=== PATIENT | male | born 1965 | race Caucasian/White ===

== ENCOUNTER 2021-03-08 10:43 | Observation (INO) | payer BC, SELFPAY ==
[2021-03-08 11:02] VITALS: BP 185/139; PULSE 93; RESP 18; TEMP 36.7; O2SAT 100; BMI 24.3
--- NOTE | 2021-03-08 11:14 | ED_ITS ---
HPI - Neuro Symptoms/Deficit General: Chief Complaint: Neuro Symptoms/Deficit Stated Complaint: NEURO SX: SENT BY DR JARVIS Time Seen by Provider: 03/08/21 11:14 History of Present Illness: HPI Narrative: Mr. Gandhi is a 55-year-old gentleman with significant past medical history of hypertension who presents emergency department for sensory changes. Symptom onset was subacute approximately 1 week ago without specific inciting factors that the patient identifies. He initially noticed a weird sensation in his right foot however this subsequently rapidly progressed to being the entire right side of his body including torso and face. He describes it as varying slightly however currently compared to contralateral side approximately 15% sensation. He feels unsteady in his gait without looking at what his feet are doing. He does have mild right-sided headache which is sharp in nature. No other specific changes in health, exacerbating factors, provoking, alleviating factors, or similar episodes in the past. Review of Systems General: Reports: 10 or more systems reviewed and unremarkable except in HPI and below PFSH ED PFSH: Medical History (Updated 03/10/21 @ 00:01 by ) Cerebrovascular accident Hypertension Physical Exam Narrative: EXAM NARRATIVE: GENERAL/CONSTITUTIONAL - well-appearing. No acute distress. Eyes - PERRL, no conjunctival injection ENMT - Atraumatic external nose and ears. Moist mucous membranes NECK - supple. trachea midline CARDIOVASCULAR - regular rate and rhythm. Peripheral pulses 2+ and equal RESPIRATORY -clear to auscultation bilaterally. No retractions or accessory muscle use. ABDOMEN/GI - Nontender/Nondistended. No tenderness to percussion or evidence of peritonitis MSK - Extremities without obvious deformity or tenderness to palpation SKIN - Warm, Dry NEURO - alert and oriented x3. Right-sided sensory deficits to sharp and light touch noted on right upper and lower extremity as well as torso and less of the face. No strength deficits, coordination is intact, positive Romberg. Course ED course: - Patient was seen and evaluated by me at bedside - Patient placed on cardiac monitors, IV access obtained - Initial evaluation notable for neuro exam as noted above, patient outside TPA window. - Labs notable for no acute abnormality to explain patient's symptoms. - Imaging notable for no significant abnormality noted on head CT or CTA. - Recommend admission however the patient was hesitant at which point MRI was noted. MRA notable for stroke. - Upon serial reexamination after treatment the patient was similar - Based on patient history, evaluation, labs, and imaging as interpreted the most likely cause of the patient's condition is stroke - The results of ED evaluation were discussed with the patient including plan for admission due to requirement for level of care not available if discharged to prevent significant worsening/deterioration. - Hospitalist service contacted and agreed admit the patient for further evaluation and risk factor modification. - Patient was admitted without further deterioration or significant events. Vital Signs: Vital signs: Vital Signs Temperature 97.9 F 03/09/21 15:53 Pulse Rate 91 03/09/21 15:53 Respiratory Rate 16 03/09/21 15:53 Blood Pressure 167/106 03/09/21 15:53 Pulse Oximetry 96 03/09/21 15:53 MDM - Neuro Symptoms/Deficit Medical Records: Attestation: I reviewed the patient's medical records. Lab Data: Attestation: I reviewed the patient's lab results. Labs: Lab Results 03/08/21 03/08/21 11:30 11:30 WBC 8.9 10^3/uL 10^3/ uL (4.0-10.0) RBC 5.18 10^6/uL 10^6 /uL (4.1-5.3) Hgb 16.0 g/dL g/dL (11.7-16.6) Hct 48.1 % % (42.0-52.0) MCV 92.9 fl fl (80-94) MCH 30.9 pg pg (28.0-34.0) MCHC 33.3 g/dL g/dL (30.0-36.0) RDW 13.7 % % (12.1-15.1) Plt Count 246 10^3/cmm 10^3 /cmm (130-400) MPV 12.3 fL H fL (7.4-10.4) Neut % (Auto) 62.9 % % Lymph % (Auto) 26.2 % % [place] % (Auto) 5.7 % % Eos % (Auto) 3.4 % % Baso % (Auto) 1.5 % % Neut # (Auto) 5.61 10^3/uL 10^3 /uL (1.8-7.7) Lymph # (Auto) 2.3 10^3/uL 10^3/ uL (0.8-4.8) [place] # (Auto) 0.5 10^3/uL 10^3/ uL (0.2-0.9) Eos # (Auto) 0.3 10^3/uL 10^3/ uL (0.0-0.8) Baso # (Auto) 0.1 10^3/uL 10^3/ uL (0.0-0.1) Nucleated RBC % (a uto) 0 % % Nucleated RBCs # 0.0 /100WBC /100W BC Sodium 141 mmol/L mmol/L (136-145) Potassium 3.9 mmol/L mmol/L (3.5-5.1) Chloride 105 mmol/L mmol/L (98-107) Carbon Dioxide 26 mmol/L mmol/L (22-29) Anion Gap 13.9 (5-19) BUN 8 mg/dL mg/dL (6-20) Creatinine 0.7 mg/dL mg/dL (0.7-1.2) GFR Calculation 118.0 mL/min mL/m in (90-130) Glucose 88 mg/dL mg/dL (65-115) Calculated Osmolal ity 290 mOsm/kg mOsm/ kg (285-295) Calcium 9.2 mg/dL mg/dL (8.5-10.5) Total Bilirubin 0.2 mg/dL mg/dL (0.15-1.2) AST 19 U/L U/L (0-40) ALT 21 U/L U/L (0-41) Alkaline Phosphata se 89 IU/L IU/L (40-130) Total Protein 6.9 g/dL g/dL (6.6-8.7) Albumin 4.2 g/dL g/dL (3.5-5.2) Globulin 2.7 g/dL g/dL (1.3-4.6) Discharge Plan Discharge Patient Disposition: Placed in Observation Admit Provider: Alex Garcia Clinical Impression: Cerebrovascular accident Discharge Diet: Low Salt Discharge Activity: Resume usual activity Coding Level of Care Code ED Quality Systems Technician for Aaron Cota
[2021-03-08 11:15] VITALS: BP 185/109; PULSE 74; RESP 16; TEMP 36.8; O2SAT 98
--- NOTE | 2021-03-08 11:15 | CT_ITS ---
WS: [id number] CT HEAD NONCONTRAST HISTORY: stroke like symptoms TECHNIQUE: Contiguous axial imaging performed through the brain in 2.5 mm imaging. Bone and soft tiss ue windows. Sagittal and coronal reformats reviewed. All CT scans at [facility] use at least one of these dose optimization techniques: automated exposure control; mA and/or kV adjustment per pa tient size (includes targeted exams where dose is matched to clinical indication); or iterative recon struction. DLP: 976.42 mGy.cm COMPARISON: None available. No acute intracranial hemorrhage, midline shift or mass effect. Prominent perivascular space along th e RIGHT inferior basal ganglia. No atrophy or prior infarcts or herniation. Ventricles: Normal size with no hydrocephalus. Paranasal sinuses: As visualized are clear. Mastoid air cells: Well pneumatized. Calvarium and scalp: Skull is intact with no soft tissue edema or swelling. CT/CT head wo con* [id number] IMPRESSION: 1. No acute intracranial hemorrhage or edema. 2. No acute infarct or sulcal effacement.
--- NOTE | 2021-03-08 11:44 | CT_ITS ---
WS: [id number] CT ANGIOGRAM CEREBRAL AND CAROTID ARTERIES HISTORY: stroke like symptoms, R side sensory changes TECHNIQUE: CT angiogram is performed of the carotid and cerebral arteries. During arterial injection imaging is obtained from the skull vertex to the aortic arch in 1.25 mm imaging. Coronal and sagittal reformats are submitted. Additional multi planar reformats of the carotid and cerebral arteries are submitted, MIP imaging also reviewed. NASCET criteria utilized. [facility] CT [facility] at least one of these dose optimization techniques: automated exposure control; mA and/or kV adjust ment per patient size (includes targeted exams where dose is matched to clinical indication); or iter ative reconstruction. CONTRAST: Omnipaque 350; 95 mL IV. DLP: 2501.85 mGy.cm COMPARISON: None available. Carotid Angiogram: Right carotid: Common carotid artery: Arises normally from the innominate artery. No significant plaque or stenosis. Internal carotid artery: Small amount of intimal thickening and plaque at the proximal ICA. No stenos is. External carotid artery: Patent. Left carotid: Common carotid artery: Arises normally from the aorta. No significant plaque or stenosis. Internal carotid artery: Small noncalcified plaque and intimal thickening. No stenosis. External carotid artery: Patent. Right vertebral artery: Unremarkable. Left vertebral artery: Unremarkable. Arises normally from the subclavian artery. Subclavian arteries: LEFT subclavian artery is poorly visualized due to contrast opacification from t he injection. RIGHT subclavian artery is negative. Upper thorax: Normal. Thyroid gland: Normal. Osseous structures: Unremarkable. CEREBRAL ANGIOGRAM: Intracranial vertebral arteries: Normal with no significant atherosclerosis. Basilar artery: No significant stenosis or occlusion. No aneurysm. Intracranial Internal carotid arteries: Small amount of calcified plaque through the petrous LEFT ICA . No stenosis. Middle cerebral arteries: Normal. Anterior cerebral arteries and ACOM: Normal. Posterior cerebral arteries and PCOM's: Normal. Dural venous sinuses are normally enhancing. Mastoid air cells: Normal. Paranasal sinuses: Normal. Calvarium: Normal. CT/CT angio headneck* [id number] IMPRESSION: 1. No significant carotid artery stenosis. Small amount of intimal thickening at the carotid bifurcations. 2. Unremarkable [place]. No aneurysms or occlusions.
--- NOTE | 2021-03-08 11:45 | XR_ITS ---
WS: [id number] Portable AP upright chest, 03/08/2021 Clinical Data: stroke like symptoms Comparison: None. Findings: No nodules, masses or effusions are seen. The heart is normal. The pulmonary vascularity is not increased. No pneumonia or pneumothorax is seen. Monitor leads are on the chest wall. XR/XR chest 1V portable [id number] Impression: Negative chest.
[2021-03-08 12:00] LABS: Basophils # 0.1 10^3/uL (0.0-0.1); Basophils % 1.5 %; Eosinophils # 0.3 10^3/uL (0.0-0.8); Eosinophils % 3.4 %; Hematocrit 48.1 % (42.0-52.0); Lymphocytes # 2.3 10^3/uL (0.8-4.8); Lymphocytes % 26.2 %; Mean Corpuscular HGB Conc 33.3 g/dL (30.0-36.0); Mean Corpuscular Hemoglobin 30.9 pg (28.0-34.0); Mean Corpuscular Volume 92.9 fl (80-94); Mean Platelet Volume 12.3 fL (7.4-10.4); Monocytes # 0.5 10^3/uL (0.2-0.9); Monocytes % 5.7 %; Neutrophils # 5.61 10^3/uL (1.8-7.7); Neutrophils % 62.9 %; Nucleated Red Blood Cells % 0 %; Platelet Count 246 10^3/cmm (130-400); Red Blood Count 5.18 10^6/uL (4.1-5.3); Red Cell Distribution Width 13.7 % (12.1-15.1); White Blood Count 8.9 10^3/uL (4.0-10.0)
[2021-03-08 12:23] LABS: Alanine Aminotransferase 21 U/L (0-41); Albumin Level 4.2 g/dL (3.5-5.2); Alkaline Phosphatase 89 IU/L (40-130); Aspartate Amino Transferase 19 U/L (0-40); Blood Urea Nitrogen 8 mg/dL (6-20); Calcium 9.2 mg/dL (8.5-10.5); Carbon Dioxide 26 mmol/L (22-29); Chloride 105 mmol/L (98-107); Globulin 2.7 g/dL (1.3-4.6); Glucose 88 mg/dL (65-115); Osmolality Calculated 290 mOsm/kg (285-295); Sodium 141 mmol/L (136-145); Total Bilirubin 0.2 mg/dL (0.15-1.2); Total Protein 6.9 g/dL (6.6-8.7)
--- NOTE | 2021-03-08 12:27 | PC.NURSE ---
03/08/21 12:25 - [id number] 10/20/1922 Patient Age: 89 Pt arrvied via POV from PCP office. Pt states his PCP advised pt to come in to Er after a week of worsening left sided numbness and weakness. Pt states his BP has been higher than normal and he has been having frequent HAs. Pt denies any previous cardiac or stroke hx, pt A/O x4, vs taken. Pt placed on monitor. Initialized on 03/08/21 12:25 - END OF NOTE
[2021-03-08] MEDS: iohexol 350 mg/mL 100 mL Btl IV (12:43)
[2021-03-08 12:51] LABS: Anion Gap 13.9 (5-19); Potassium 3.9 mmol/L (3.5-5.1)
--- NOTE | 2021-03-08 13:32 | MR_ITS ---
WS: [id number] MRI BRAIN WITHOUT CONTRAST HISTORY: right sided numbness COMPARISON: None available. TECHNIQUE: Diffusion imaging, multiplanar T1, T2 and FLAIR imaging obtained. Very small lacunar infarct in the LEFT thalamus is nonhemorrhagic. No additional infarcts are identif ied. Prominent perivascular space RIGHT medial temporal lobe. There are a few additional very nonspecific T2 and FLAIR signal hyperintensities from microvascular ischemic disease. Ventricles and extra-axial spaces are normal. No inferior displacement of cerebellar tonsils. The sella turcica and pituitary gland are unremarkabl e. Dural venous sinuses and [place] demonstrate no abnormality on this unenhanced studies. Paranasal sinuses: Clear. Mastoid air cells: Normal. Calvarium and scalp: Intact. MR/MR head wo con* [id number] IMPRESSION: 1. Tiny acute lacunar infarct in the LEFT thalamus. Nonhemorrhagic. 2. Otherwise very minimal chronic microvascular ischemic type changes.
--- NOTE | 2021-03-08 13:32 | MR_ITS ---
WS: [id number] MRI CERVICAL SPINE NONCONTRAST HISTORY: right sided numbness COMPARISON: None available. Technique: Multiplanar, multisequence noncontrast imaging of the cervical spine. Normal cervical alignment with no compression fracture or significant disc space narrowing. Signal within the cervical cord is normal. Visualized posterior fossa is unremarkable. Craniocervical junction, C1 and C2 relationship, odontoid process and soft tissues are normal. C2-C3: Normal. C3-C4: Normal. C4-C5: Small vertebral body osteophytes. No stenosis. C5-C6: Small central disc protrusion. No contact on the cord. Small bilateral foraminal osteophytes. Very mild LEFT foraminal narrowing. C6-C7: Small central disc protrusion without cord contact. Disc protrusion is central and just to the LEFT of midline. Small bilateral foraminal osteophytes. C7-T1: Normal. Paraspinal soft tissue are normal. MR/MR cervical spin wo con* [id number] IMPRESSION: 1. Small central to LEFT paracentral disc protrusion at C6-7 without cord cont act. Small bilateral foraminal osteophytes causing mild foraminal narrowing at C6-7. 2. Small central disc protrusion at C5-6 without cord contact. 3. Very LEFT foraminal narrowing at C5-6.
--- NOTE | 2021-03-08 19:18 | P.HP_ITS ---
Providers/Chief Complaint Admitting Physician: Alex Garcia MD Primary Care Provider: Honorio Jarvis MD Chief Complaint: NEURO SX: SENT BY DR JARIVS [id number] I63.9 History of Present Illness Misael Moses is a 55 year old male with past medical history of hypertension, came in with chief complaint of right-sided numbness, going on for last 1 week, it was worst last night, yesterday along with his numbness he was also complaining of lightheadedness, as well as spinning of head, accompanied with nausea and vomiting, up to a point where he felt that he can have a fall.No history of fall. talked with his primary care physician, who advised him to go to the ER. Upon arrival in the ER he was worked up for above mention. When I talked to the he was still complaining of right-sided numbness, denied any weakness in any body part, speech was normal, denied any headache, visual disturbance, no difficulty with hearing. Pertinent imaging studies: CT head without contrast: No acute intracranial pathology CTA head and neck: No significant carotid artery stenosis. Small amount of intimal thickening at the carotid bifurcations. MRI head without contrast: Tiny acute lacunar infarct in the LEFT thalamus. Nonhemorrhagic. MR cervical spin wo con:Small central to LEFT paracentral disc protrusion at C6- 7 without cord contact. Small bilateral foraminal osteophytes causing mild foraminal narrowing at C6-7.Small central disc protrusion at C5-6 without cord contact.Very LEFT foraminal narrowing at C5-6. EKG: Review of Systems Const: Denies: fever(s), chills, body aches, change in appetite or diaphoresis Card: Denies: palpitations, edema, swelling of feet/ankles, dyspnea on exertion, orthopnea or leg pain with exertion Resp: Denies: dyspnea, productive cough, wheezing or pain on inspiration GI: Denies: abdominal pain, diarrhea or constipation : Denies: flank pain or difficulty urinating Musc: Denies: back pain, extremity pain or extremity swelling Neuro: Denies: headache(s), difficulty walking or confusion Vitals/I&O/Wt Last Vital Signs Temp 98.3 F 03/08/21 11:15 Pulse 74 03/08/21 11:15 Resp 16 03/08/21 11:15 BP 185/109 03/08/21 11:15 Pulse Ox 98 03/08/21 11:15 Weight last 48 hrs Weight 70.307 kg Physical Exam Const: COMMON NORMALS: patient oriented x3 HENMT: COMMON NORMALS: normocephalic, atraumatic, hearing grossly normal bilaterally and external ears normal HEAD & SCALP: normocephalic and atraumatic EXTERNAL EAR: Yes external ears normal Eye: COMMON NORMALS: no scleral icterus GENERAL EYE: appearance normal, both eyes and all related structures Resp: COMMON NORMALS: clear to auscultation bilaterally AUSCULTATION: clear to auscultation bilaterally Cardio: COMMON NORMALS: regular rate, regular rhythm, S1 normal heart sound present, S2 normal heart sound present, No gallops present (Cardio), No murmurs present (Cardio), No rub (Cardio) and Peripheral pulses 2+ throughout RATE: r egular rate RHYTHM: regular rhythm HEART SOUNDS: S1 normal heart sound present and S2 normal heart sound present PERIPHERAL PULSES: Peripheral pulses 2+ throughout GI: COMMON NORMALS: Normal to inspection, nondistended, normoactive bowel sounds present, Soft to palpation, non-tender, No hepatosplenomegaly present and no masses AUSCULTATION: Yes normoactive bowel sounds PALPATION: Yes Soft to palpation and Yes No hepatosplenomegaly present RECTAL EXAM: Yes deferred Extremity: COMMON NORMALS: no clubbing, cyanosis or edema and no pedal edema Neuro: COMMON NORMALS: patient oriented x3 Data : 03/08/21 11:30 03/08/21 11:30 A&P Assessment and plan (1) Cerebrovascular accident: Acute CVA: Patient will be kept on stroke protocol. Neuro check every 4 hours PT OT evaluation air sampling and monitoring 2D echo Permissive hypertension for next 24-48 ( Goal B/P < 220/110 ) Aspirin 81 mg p.o. day Plavix 75 mg po daily Lipitor 40 mg po daily Status: Acute (2) Hypertension: Permissive hypertension for next 24-48 ( Goal B/P < 220/110 ) Will resume home medications as appropriate time. Status: Acute Attestations Medical Necessity Statement*: Patient needs to be in hospital for management of acute stroke. Coding Level of Care Code Acute Wastewater Analyst Lab Analyst for Aaron Cota Diagnoses Cerebrovascular accident I63.9 Hypertension I10
--- NOTE | 2021-03-08 19:29 | PC.NURSE ---
NURSE TO NURSE REPORT GIVEN AT 1845. NURSE VISITED WITH PATIENT AT 1920.
[2021-03-08 19:30] VITALS: BP 170/127; PULSE 81; RESP 18; O2SAT 96
[2021-03-08 20:00] VITALS: BP 156/98; PULSE 78; RESP 18; TEMP 36.7; O2SAT 97
--- NOTE | 2021-03-08 20:06 | ECG_ITS ---
[facility] Test Date: 2021-03-08 Pat Name: Misael Moses Department: Room: 278 Gender: Male Sports Medicine Specialist: : [id number] Requested By: Alex Garcia Order Number: [id number] [place] MD: Jacqueline Coyne M.D. Measurements Intervals Olga Rate: 67 P: 37 CA: 175 QRS: 37 QRSD: 93 T: 35 QT: 380 QTc: 403 Interpretive Statements SINUS RHYTHM WITH SINUS ARRHYTHMIA No previous ECG available for comparison Electronically Signed On 03-09-2021 22:52:21 AFTER SCHOOL COORDINATOR by Jacqueline Coyne M.D. [email or web address]
[2021-03-08] MEDS: aspirin 81 mg EC Tablet PO (22:17)
[2021-03-08] MEDS: atorvastatin 40 mg Tablet PO (22:17)
[2021-03-09] VITALS: BP 164/87; PULSE 83; RESP 18; TEMP 37.2; O2SAT 96
[2021-03-09 04:00] VITALS: BP 151/86; PULSE 79; RESP 18; TEMP 37.1; O2SAT 94
[2021-03-09 05:35] LABS: Basophils # 0.1 10^3/uL (0.0-0.1); Basophils % 1.3 %; Eosinophils # 0.4 10^3/uL (0.0-0.8); Eosinophils % 4.4 %; Hematocrit 46.7 % (42.0-52.0); Hemoglobin 15.5 g/dL (11.7-16.6); Lymphocytes # 2.3 10^3/uL (0.8-4.8); Lymphocytes % 24.1 %; Mean Corpuscular HGB Conc 33.2 g/dL (30.0-36.0); Mean Corpuscular Hemoglobin 31.4 pg (28.0-34.0); Mean Corpuscular Volume 94.5 fl (80-94); Mean Platelet Volume 11.9 fL (7.4-10.4); Monocytes # 0.6 10^3/uL (0.2-0.9); Monocytes % 6.7 %; Neutrophils # 5.88 10^3/uL (1.8-7.7); Neutrophils % 63.1 %; Nucleated Red Blood Cells % 0 %; Platelet Count 267 10^3/cmm (130-400); Red Blood Count 4.94 10^6/uL (4.1-5.3); Red Cell Distribution Width 13.7 % (12.1-15.1); White Blood Count 9.3 10^3/uL (4.0-10.0)
[2021-03-09 05:49] LABS: Partial Thromboplastin Time 27.2 SECONDS (23.9-36.7)
[2021-03-09 05:55] LABS: Chol HDL Ratio 6.51 mg/dL (1.0-5.00); Cholesterol 228 mg/dL (0-200); HDL Cholesterol 35 mg/dL (60-100); LDL Cholesterol Calculated 164 mg/dL (50-129); LDL HDL Ratio 4.69 RATIO (0.00-3.22); Triglycerides 146 mg/dL (0-150)
[2021-03-09 06:00] VITALS: PULSE 69
[2021-03-09 06:17] LABS: Estmated Average Glucose 100; Hemoglobin A1C 5.1 % (4.0-6.0)
[2021-03-09 06:20] LABS: Alanine Aminotransferase 19 U/L (0-41); Alkaline Phosphatase 74 IU/L (40-130); Aspartate Amino Transferase 17 U/L (0-40); Blood Urea Nitrogen 11 mg/dL (6-20); Calcium 9.2 mg/dL (8.5-10.5); Carbon Dioxide 24 mmol/L (22-29); Chloride 108 mmol/L (98-107); Globulin 2.5 g/dL (1.3-4.6); Glucose 89 mg/dL (65-115); Osmolality Calculated 293 mOsm/kg (285-295); Sodium 142 mmol/L (136-145); Thyroid Stimulating Hormone 0.72 uIU/mL (0.27-4.20); Total Bilirubin 0.6 mg/dL (0.15-1.2); Total Protein 6.5 g/dL (6.6-8.7)
[2021-03-09 06:32] LABS: Anion Gap 14.2 (5-19); Potassium 4.2 mmol/L (3.5-5.1)
[2021-03-09 08:00] VITALS: BP 174/98; PULSE 84; RESP 16; TEMP 36.8; O2SAT 95
[2021-03-09] MEDS: aspirin 81 mg EC Tablet PO (09:04)
[2021-03-09] MEDS: clopidogrel 75 mg Tablet PO (09:04)
[2021-03-09 12:00] VITALS: BP 167/106; PULSE 91; RESP 16; TEMP 36.6; O2SAT 96
--- NOTE | 2021-03-09 12:51 | PC.OT ---
OT orders recieved. OT screen completed. No further OT recommended this date.
--- NOTE | 2021-03-09 13:26 | P.DS_ITS ---
Discharge Providers Date of Admission: 03/08/21 18:31 Date of Discharge: March 09, 2021 Attending Provider at Admission: Alex Garcia MD Attending Provider at Discharge: Alex Garcia MD Primary Care Provider: Honorio Jarvis MD Diagnoses at Discharge Discharge Diagnosis (1) Cerebrovascular accident: Status: Acute (2) Hypertension: Status: Acute (3) Palpitation: Status: Acute Reason for Visit Reason for Visit: NEURO SX: SENT BY DR JARVIS 21611 I63.9 Hospital Course Hospital Course Misael Moses is a 55 year old male with past medical history of hypertension, came in with chief complaint of right-sided numbness, going on for last 1 week, it was worst last night, yesterday along with his numbness he was also complaining of lightheadedness, as well as spinning of head, accompanied with nausea and vomiting, up to a point where he felt that he can have a fall.No history of fall. talked with his primary care physician, who advised him to go to the ER. Upon arrival in the ER he was worked up for above mention. When I talked to the he was still complaining of right-sided numbness, denied any weakness in any body part, speech was normal, denied any headache, visual disturbance, no difficulty with hearing. Pertinent imaging studies: CT head without contrast: No acute intracranial pathology CTA head and neck: No significant carotid artery stenosis. Small amount of in timal thickening at the carotid bifurcations. MRI head without contrast: Tiny acute lacunar infarct in the LEFT thalamus. Nonhemorrhagic. MR cervical spin wo con:Small central to LEFT paracentral disc protrusion at C6- 7 without cord contact. Small bilateral foraminal osteophytes causing mild foraminal narrowing at C6-7.Small central disc protrusion at C5-6 without cord contact.Very LEFT foraminal narrowing at C5-6. EKG sinus rhythm. 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 2D echo:LV systolic function is normal with EF 50 to 55%.Normal diastolic function.No significant valvular heart disease. Patient had no significant weakness, his numbness was still there but improving. Aspirin 81 mg p.o. day. Plavix 75 mg po daily. Lipitor 40 mg po daily.Patient was ambulating independently. He has been placed on 3 weeks event monitor, to rule out any underlying cardiac arrhythmia, given history of palpitation, as a potential cause of current acute CVA. Patient will continue to follow with his primary care physician as an outpa tient.He was discharged in stable condition to home. Physical Exam Const: COMMON NORMALS: patient oriented x3 HENMT: COMMON NORMALS: normocephalic, atraumatic, hearing grossly normal bilaterally and external ears normal HEAD & SCALP: normocephalic and atraumatic EXTERNAL EAR: Yes external ears normal Eye: COMMON NORMALS: no scleral icterus GENERAL EYE: appearance normal, both eyes and all related structures Resp: COMMON NORMALS: clear to auscultation bilaterally AUSCULTATION: clear to auscultation bilaterally Cardio: COMMON NORMALS: regular rate, regular rhythm, S1 normal heart sound present, S2 normal heart sound present, No gallops present (Cardio), No murmurs present (Cardio), No rub (Cardio) and Peripheral pulses 2+ throughout RATE: regular rate RHYTHM: regular rhythm HEART SOUNDS: S1 normal heart sound present and S2 normal heart sound present PERIPHERAL PULSES: Peripheral pulses 2+ throughout GI: COMMON NORMALS: Normal to inspection, nondistended, normoactive bowel sounds present, Soft to palpation, non-tender, No hepatosplenomegaly present and no masses AUSCULTATION: Yes normoactive bowel sounds PALPATION: Yes Soft to palpation and Yes No hepatosplenomegaly present RECTAL EXAM: Yes deferred Extremity: COMMON NORMALS: no clubbing, cyanosis or edema and no pedal edema Neuro: COMMON NORMALS: patient oriented x3 Discharge Data Data Completed and Pending: Completed Studies During Hospitalization Category Date Time Status CT angio headneck * [id number] Urge nt Cat Scan 03/08/21 11:[address] head wo con* [id number] Urgent Cat Scan 03/08/21 11:15 Completed XR chest 1V lawanda ble [id number] Urgent Exams 03/08/21 11:45 Completed MR cervical spin wo con* [id number] Urge nt MRI 03/08/21 13:32 Completed MR head wo con* 7 [id number] Urgent MRI 03/08/21 13:32 Completed Pending at discharge Category Date Time Status Complete Blood Co unt w/Auto AM LABS Lab 03/10/21 04:00 Ordered Complete Blood Co unt w/Auto AM LABS Lab 03/11/21 04:00 Ordered Comprehensive Met abolic Panel AM LA BS Lab 03/10/21 04:00 Ordered Comprehensive Met abolic Panel AM LA BS Lab 03/11/21 04:00 Ordered CV. echo complete * [id number] Routine Ultrasound 03/09/21 19:18 Taken Labs from last 24 hours 03/09/21 03/09/21 03/09/21 04:50 04:50 04:50 WBC RBC Hgb Hct MCV MCH MCHC RDW Plt Count MPV Neut % (Auto) Lymph % (Auto) [place] % (Auto) Eos % (Auto) Baso % (Auto) Neut # (Auto) Lymph # (Auto) [place] # (Auto) Eos # (Auto) Baso # (Auto) Nucleated RBC % (a uto) Nucleated RBCs # PT INR APTT Sodium 142 Potassium 4.2 Chloride 108 H Carbon Dioxide 24 Anion Gap 14.2 BUN 11 Creatinine 0.7 GFR Calculation 118.0 Glucose 89 Estimat Average Gl ucose 100 Hemoglobin A1c 5.1 Calculated Osmolal ity 293 Calcium 9.2 Total Bilirubin 0.6 AST 17 ALT 19 Alkaline Phosphata se 74 Total Protein 6.5 L Albumin 4.0 Globulin 2.5 Triglycerides 146 Cholesterol 228 H LDL Cholesterol, C alc 164 H HDL Cholesterol 35 L LDL/HDL Ratio 4.69 H Cholesterol/HDL Ra mayra 6.51 H TSH 0.72 03/09/21 03/09/21 04:50 04:50 WBC 9.3 RBC 4.94 Hgb 15.5 Hct 46.7 MCV 94.5 H MCH 31.4 MCHC 33.2 RDW 13.7 Plt Count 267 MPV 11.9 H Neut % (Auto) 63.1 Lymph % (Auto) 24.1 [place] % (Auto) 6.7 Eos % (Auto) 4.4 Baso % (Auto) 1.3 Neut # (Auto) 5.88 Lymph # (Auto) 2.3 [place] # (Auto) 0.6 Eos # (Auto) 0.4 Baso # (Auto) 0.1 Nucleated RBC % (a uto) 0 Nucleated RBCs # 0.0 PT 13.50 INR 1.00 APTT 27.2 Sodium Potassium Chloride Carbon Dioxide Anion Gap BUN Creatinine GFR Calculation Glucose Estimat Average Gl ucose Hemoglobin A1c Calculated Osmolal ity Calcium Total Bilirubin AST ALT Alkaline Phosphata se Total Protein Albumin Globulin Triglycerides Cholesterol LDL Cholesterol, C alc HDL Cholesterol LDL/HDL Ratio Cholesterol/HDL Ra mayra TSH Vitals: Last Vital Signs Temp 97.9 F 03/09/21 12:00 Pulse 91 03/09/21 12:00 Resp 16 03/09/21 12:00 BP 167/106 03/09/21 12:00 Pulse Ox 96 03/09/21 12:00 Discharge Plan Discharge Patient Disposition: Home Condition: Stable Prescriptions: New atorvastatin 40 mg Tablet 40 mg PO BEDTIME 30 Days Qty: 30 RF: 3 clopidogrel 75 mg Tablet 75 mg PO DAILY 30 Days Qty: 30 RF: 3 aspirin 81 mg Tablet,Delayed Release (Dr/Ec) 81 mg PO DAILY 30 Days Qty: 30 RF: 3 Continued lisinopril 40 mg Tablet 40 mg PO DAILY RF: 0 Discharge Orders: Discharge Order (Routine); Ordered 03/09/21 Ordered By: Alex Garcia Other Ambulatory Orders: CA cardiac event monitor (Routine) Timeframe: 3 Weeks Facility: [facility] - Location: Cardiac Diagnostic Laboratory Ordered By: Alex Garcia Referrals: Honorio Jarvis MD [Primary Care Provider] - 03/28/21 10:15 am Discharge Diet: Low Salt Discharge Activity: Resume usual activity Patient Instructions: Aspirin (By mouth), Atorvastatin (By mouth), Clopidogrel (By mouth), Ischemic Stroke (DC), Low-Sodium Diet (DC), Opioid Safety, Stroke Stoplight Activity Restrictions/Additional Instructions: [facility] WILL MAIL EVENT MONITOR Discharge Attestations Time Spent in Discharge Care*: less than 30 min Specific Discharge Activities: educating patient, educating and/or supporting family/caregiver, discussing with pcp/other providers, discussing with rn field case manager/social workers/dc planners, documenting/other paperwork and evaluating patient/reviewing data Status at Discharge: Cognitive status at discharge: cognitively intact , Behavioral status at discharge: cooperative , Functional status at discharge: independent ambulation Overall status at discharge: patient is progressing back to baseline Quality Metrics Clinical Quality Measures During this hospital stay, did patient experience: None Coding Level of Care Code Acute Chg FW DC note Diagnoses Cerebrovascular accident I63.9 Hypertension I10 Palpitation R00.2
[2021-03-09 15:53] VITALS: BP 167/106; PULSE 91; RESP 16; TEMP 36.6; O2SAT 96
--- NOTE | 2021-03-09 16:25 | PC.NURSE ---
PATIENT VERBALIZED UNDERSTANDING OF DISCHARGE INSTRUCTIONS, HOME MEDICATIONS, AND FOLLOW UP APPOINTMENTS. IV REMOVED PRIOR TO PATIENTS BEING DISCHARGED
--- NOTE | 2021-03-09 19:18 | USCV_ITS ---
Misael Moses Age: 55 Gender: M : 1965 Exam Date: 03/09/2021 06:31 Ordering Phys: Alex Garcia MD Technologist: María Gan [place] [facility] [place]: PALPITATIONS BP: 164 / 87 HR: 72 Rhythm: Sinus Technical Quality: Adequate MEASUREMENTS (Male / Female) Normal Values 2D ECHO LV Diastolic Diameter PLAX 4.4 cm 4.2 - 5.9 / 3.9 - 5.3 cm LV Systolic Diameter PLAX 3.1 cm IVS Diastolic Thickness 1.1 cm 0.6 - 1.0 / 0.6 - 0.9 cm IVS Systolic Thickness 1.6 cm LVPW Diastolic Thickness 1.0 cm 0.6 - 1.0 / 0.6 - 0.9 cm LVPW Systolic Thickness 1.4 cm RV Chamber Size 3.3 cm LVOT Diameter 2.0 cm LV Ejection Fraction 2D Teich 56.9 % LV Ejection Fraction MOD 2C 42.3 % LV Ejection Fraction 2C AL 46.3 % LA Diameter 2.1 cm LA Width 3.2 cm LA Height 3.4 cm RA Width 2.8 cm RA Height 3.2 cm Aorta at Sinotubular Diameter 2.1 cm DOPPLER AV Peak Velocity 100.0 cm/s LVOT Peak Velocity 84.0 cm/s AV Area Cont Eq vti 3.3 cm squared AV Area Cont Eq pk 2.7 cm squared MV Area PHT 4.9 cm squared Mitral E to A Ratio 1.1 MV E' Velocity 39.0 cm/s Mitral E to MV E' Ratio 6.6 Mitral E to LV E' Lateral Ratio 6.3 Mitral E to LV E' Septal Ratio 7.1 TR Peak Velocity 220.0 cm/s TR Peak Gradient 19.4 mmHg TV Peak E Velocity 50.0 cm/s Right Atrial Pressure 8.0 mmHg Pulmonary Artery Systolic Pressu 27.4 mmHg PV Peak Velocity 61.0 cm/s RV Acceleration Time 0.1 s RV Ejection Time 0.3 s RV AcT/ET 0.4 FINDINGS Left Ventricle Normal left ventricular size. LV systolic function is normal with EF of 50-55%. No regional wall motion abnormalities. Normal diastolic filling pattern. Right Ventricle The right ventricle is normal in size and function. Right Atrium The right atrium is normal in size. Left Atrium The left atrium is normal in size. Mitral Valve Structurally normal mitral valve without significant stenosis or prolapse. There is no mitral regurgitation. Aortic Valve Structurally normal aortic valve without significant sclerosis or stenosis. There is no aortic regurgitation. Tricuspid Valve Structurally normal tricuspid valve without significant stenosis or regurgitation. Insufficient TR jet to calculate RVSP Pulmonic Valve Structurally normal pulmonic valve without significant stenosis. There is no pulmonic regurgitation. Pericardium Normal pericardium without effusion. Aorta Normal ascending aorta dimension. CONCLUSIONS Technically limited quality echocardiogram because of poor ultrasonic windows. LV systolic function is normal with EF 50 to 55%. Normal diastolic function. No significant valvular heart disease. No comparison studies are available Sincere French MD (Electronically Signed) Final Date: 09 March 2021 14:37 S
== END 2021-03-09 16:01 | disposition home or self-care (01) ==
LOC: ER 18:12 → MEDSURG 03-09 08:12
PROVIDERS: Admitting Provider Internal Medicine; Emergency Provider Emergency Medicine; PCP Family Medicine; Visit Provider Internal Medicine
DX: I63.81 Other cerebral infarction due to occlusion or stenosis of small artery (principal); I10 Essential (primary) hypertension; R00.2 Palpitations; Z86.73 Personal history of transient ischemic attack (TIA), and cerebral infarction without residual deficits
CPT/HCPCS: 36415; 70450; 70496; 70498; 70551; 71045; 72141; 80053; 80061; 83036; 84443; 85025; 85610; 85730; 93005; 93306; 97161; 99285; G0378; Q9967

== ENCOUNTER 2024-07-07 13:17 | Outpatient (CLI) | payer BC, SELFPAY ==
--- NOTE | 2024-07-07 13:22 | CT_ITS ---
WS: [id number] LDCT LUNG CANCER SCREENING TECHNIQUE: Noncontrast CT of the chest with coronal and sagittal reformatted images. CLINICAL INFORMATION: HX OF TOBACCO USE COMPARISON: None. DLP: 87.19 mGy.cm DIvol: Mean CTDIvol: 1.80 (mGy) All CT scans at [facility] use at least one of these dose optimization techniques: automated exposure control; mA and/or kV adjustment per patient size (includes targeted exams where dose is matched to clinical indication); or iterative reconstruction. FINDINGS: Tiny subpleural nodule RIGHT upper lobe. Hazy atelectasis RIGHT middle lobe. Aortic calcification. Coronary calcification. No mediastinal or hilar lymphadenopathy. No axillary lymphadenopathy. Tiny esophageal hiatal hernia. Adrenal glands are normal. RIGHT renal cyst measuring 2.3 cm. Mild thoracic curve. Mild spondylitic changes thoracic spine. CT/CT lung screening [id number] IMPRESSION: LUNG-RADS: 2-Benign Appearance or Behavior FOLLOW UP: 12 Month: Continue annual screening with LDCT
== END 2024-07-07 13:18 | disposition home or self-care (01) ==
PROVIDERS: PCP Family Medicine; Visit Provider Family Medicine
DX: Z12.2 Encounter for screening for malignant neoplasm of respiratory organs (principal); Z87.891 Personal history of nicotine dependence; J98.11 Atelectasis; I70.0 Atherosclerosis of aorta; I25.10 Atherosclerotic heart disease of native coronary artery without angina pectoris; N28.1 Cyst of kidney, acquired; M43.8X4 Other specified deforming dorsopathies, thoracic region; M47.894 Other spondylosis, thoracic region
CPT/HCPCS: 71271